=== PATIENT | female | born 1980 | race African-American/Black ===

== ENCOUNTER 2018-03-14 15:25 | Emergency (ER) | payer MEDICAID, OTHER ==
[2018-03-14 15:31] VITALS: BP 116/70
--- NOTE | 2018-03-14 15:39 | ER Document Report ---
HPI - HPI Patient complains to provider of: Insect bite that she scratched Onset: Last week Onset/Duration: Gradual Pain Level: 3 Context: 37-year-old female complaining of an insect bite medial superior left buttocks that she scratched many times causing it to be more sore. No fever or chills. Associated Symptoms: None Exacerbated by: Walking Relieved by: Denies Similar symptoms previously: No Recently seen / treated by doctor: No - ROS ROS below otherwise negative: Yes Systems Reviewed and Negative: Yes All other systems reviewed and negative - REPRODUCTIVE Reproductive: DENIES: : Past Medical History - General Information source: Patient - Social History Smoking Status: Current Every Day Smoker Chew tobacco use (# tins/day): No Frequency of alcohol use: None Drug Abuse: None Lives with: Family Family History: Reviewed & Not Pertinent Patient has suicidal ideation: No Patient has homicidal ideation: No - Medical History Medical History: Negative Renal/ Medical History: Denies: Hx Peritoneal Dialysis Surgical Hx: Negative - Immunizations Hx Diphtheria, Pertussis, Tetanus Vaccination: Yes Vertical Provider Document - CONSTITUTIONAL Agree With Documented VS: Yes Exam Limitations: No Limitations General Appearance: No Apparent Distress - NEURO Level of Consciousness: Alert - DERM Notes: Excoriated skin superior medial left buttocks which is inflamed but no induration or abscess. It looks like skin that she abraded due to scratching. Course - Vital Signs Vital signs: Temp Pulse Resp BP Pulse Ox 98.0 F 81 20 116/70 100 03/14/18 15:31 03/14/18 15:31 03/14/18 15:31 03/14/18 15:31 03/14/18 15:31 Discharge - Discharge Clinical Impression: Abrasion of left buttock Qualifiers: Encounter type: initial encounter Qualified Code(s): S30.810A - Abrasion of lower back and pelvis, initial encounter Condition: Good Disposition: HOME, SELF-CARE Instructions: Abrasions ([facility]), Antibiotic Ointment Protection ([facility]), Cephalexin ([facility]) Additional Instructions: keep skin clean with soap and water bacitracin telfa return to er if not healed in 1 week Prescriptions: Cephalexin Monohydrate [Keflex 500 mg Capsule] 500 mg PO QID #28 capsule
== END 2018-03-14 16:05 | disposition home or self-care (01) ==
LOC: ER 15:25
DX: S30.810A Abrasion of lower back and pelvis, initial encounter (principal); X58.XXXA Exposure to other specified factors, initial encounter; S30.860A Insect bite (nonvenomous) of lower back and pelvis, initial encounter; W57.XXXA Bitten or stung by nonvenomous insect and other nonvenomous arthropods, initial encounter; F17.200 Nicotine dependence, unspecified, uncomplicated
CPT/HCPCS: 99281

== ENCOUNTER 2020-04-30 20:47 | Emergency (ER) | payer SELFPAY ==
[2020-04-30] MEDS ORDERED: NORMAL SALINE 1000 ML 1,000 ML IV ONE (21:10)
[2020-04-30] MEDS ORDERED: METOCLOPRAMIDE HCL 10 MG TABLET PO ONE (21:12)
--- NOTE | 2020-04-30 21:12 | ER Document Report ---
ED Medical Screen (RME) - General Mode of Arrival: Wheelchair Information source: Patient <INDER SWIFT - Last Filed: 04/30/20 21:10> <PONCHO COREAS IV - Last Filed: 05/01/20 01:07> - General Chief Complaint: Weakness Stated Complaint: FATIGUE, EXHAUSTION Time Seen by Provider: 04/30/20 21:08 Notes: 39-year-old female presented to ED for complaint of fatigue dehydration and dizziness. She states she is also nauseated and her stomach feels upset. 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 She states the only medical history she has is a burnt esophagus and high risk for . She did have a port at one time. She states she smokes 1/3 pack a day rarely drinks and does not do any illicit drugs. She states she has not had any surgeries except for the port insertion and removal. She is alert oriented respirations regular nonlabored but states she feels totally drained and dehydrated. I have ordered blood urine and IV fluids and she will be seen by another provider. I have greeted and performed a rapid initial assessment of this patient. A comp rehensive ED assessment and evaluation of the patient, analysis of test results and completion of medical decision making process will be conducted by an additional ED providers. (INDER SWIFT) - Related Data Allergies/Adverse Reactions: No Known Allergies Allergy (Unverified 01/20/12 08:40) Past Medical History - Social History Frequency of alcohol use: Rare Drug Abuse: None Renal/ Medical History: Denies: Hx Peritoneal Dialysis - Immunizations Hx Diphtheria, Pertussis, Tetanus Vaccination: Yes <INDER SWIFT - Last Filed: 04/30/20 21:10> Physical Exam - Vital signs Vitals: Temp Pulse Resp BP Pulse Ox 98.3 F 62 16 111/69 99 04/30/20 20:59 04/30/20 20:59 04/30/20 20:59 04/30/20 20:59 04/30/20 20:59 Course - Laboratory Result Diagrams: 04/30/20 21:17 04/30/20 21:17 <PONCHO COREAS IV - Last Filed: 05/01/20 01:07> - Vital Signs Vital signs: Temp Pulse Resp BP Pulse Ox 98.3 F 62 16 111/69 99 04/30/20 20:59 04/30/20 20:59 04/30/20 20:59 04/30/20 20:59 04/30/20 20:59 - Laboratory Laboratory results interpreted by ky: 04/30/20 04/30/20 04/30/20 21:17 21:17 23:55 Lymph % (Auto) 52.7 H Seg Neutrophils % 36.7 L Chloride 110 H Urine Blood LARGE H Urine Ascorbic Acid 40 H
[2020-04-30 21:51] LABS: ABSOLUTE EOSINOPHILS # (AUTO) 0.2 10^3/uL (0.0-0.6); ABSOLUTE MONOCYTES (AUTO) 0.4 10^3/uL (0.1-1.4); HEMATOCRIT 39.1 % (36.0-47.0); PLATELET COUNT 297 10^3/uL (150-450); TOTAL CELLS COUNTED % (AUTO) 100 %
[2020-04-30 22:10] LABS: ABSOLUTE LYMPHOCYTES (AUTO) 3.1 10^3/uL (0.5-4.7); ABSOLUTE NEUT (AUTO) 2.1 10^3/uL (1.7-8.2); ALBUMIN 3.9 g/dL (3.5-5.0); ALKALINE PHOSPHATASE 70 U/L (38-126); ANION GAP 6 (5-19); ASPARTATE AMINO TRANSFERASE 25 U/L (14-36); BASOPHILS % (AUTO) 0.4 % (0-2); BILIRUBIN,DIRECT 0.2 mg/dL (0.0-0.4); BILIRUBIN,TOTAL 0.3 mg/dL (0.2-1.3); BLOOD UREA NITROGEN 10 mg/dL (7-20); CALCIUM 9.1 mg/dL (8.4-10.2); CARBON DIOXIDE 22 mmol/L (22-30); CHLORIDE 110 mmol/L (98-107); CREATINE KINASE 107 U/L (30-135); EOSINOPHILS % (AUTO) 2.8 % (0-6); GLUCOSE 95 mg/dL (75-110); LYMPHOCYTES % (AUTO) 52.7 % (13-45); MEAN CORPUSCULAR HEMOGLOBIN 30.9 pg (27.0-33.4); MEAN CORPUSCULAR HGB CONC 33.2 g/dL (32.0-36.0); MEAN CORPUSCULAR VOLUME 93 fl (80-97); MONOCYTES % (AUTO) 7.4 % (3-13); POTASSIUM 4.7 mmol/L (3.6-5.0); RED CELL DISTRIBUTION WIDTH 12.3 % (11.5-14.0); SEGMENTED NEUTROPHILS % (AUTO) 36.7 % (42-78); TOTAL PROTEIN 6.8 g/dL (6.3-8.2); WHITE BLOOD COUNT 5.8 10^3/uL (4.0-10.5)
[2020-05-01 00:08] LABS: APPEARANCE,URINE SLIGHTLY-CLOUDY; BILIRUBIN,URINE NEGATIVE (NEGATIVE); COLOR,URINE YELLOW; GLUCOSE, URINE NEGATIVE (NEGATIVE); KETONES,URINE NEGATIVE (NEGATIVE); LEUKOCYTE ESTERASE,URINE NEGATIVE (NEGATIVE); NITRITE,URINE NEGATIVE (NEGATIVE); PROTEIN,URINE NEGATIVE (NEGATIVE); URINE SPECIFIC GRAVITY 1.021; UROBILINOGEN,URINE NEGATIVE mg/dL (<2.0)
[2020-05-01] MEDS ORDERED: NORMAL SALINE 1000 ML 1,000 ML IV ONE (00:20)
[2020-05-01] MEDS ORDERED: ONDANSETRON HCL INJ/PF 4 MG/2 ML SDV IV ONE (00:21)
--- NOTE | 2020-05-01 01:07 | ER Document Report ---
ED General - General Chief Complaint: Weakness Stated Complaint: FATIGUE, EXHAUSTION Time Seen by Provider: 04/30/20 21:08 Primary Care Provider: NIDIA MARISCAL MD [HONORARY] - Follow up as needed Mode of Arrival: Wheelchair - HPI Context: 39-year-old female presents to the emergency department complaint of severe fatigue, generalized weakness, sensation of dehydration and overall exhaustion. 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 Patient states that she has had to work the past 63 days straight and just feels exhausted. Exacerbating factors include having to work without a break and there are no alleviating factors other than the minimal amount of rest she is able to get. Patient denies headache fever chills cough shortness of breath chest pain abdominal pain loss of sense of taste or loss of sense of smell. Patient has not taken any [id number] medications to treat her symptoms. Associated symptoms: Other - See HPI Exacerbated by: Other - See HPI Relieved by: Other - See HPI - Related Data Allergies/Adverse Reactions: No Known Allergies Allergy (Unverified 01/20/12 08:40) Past Medical History - General Information source: Patient - Social History Smoking Status: Current Every Day Smoker Frequency of alcohol use: Rare Drug Abuse: None Family History: Reviewed & Not Pertinent Patient has homicidal ideation: No Renal/ Medical History: Denies: Hx Peritoneal Dialysis - Immunizations Hx Diphtheria, Pertussis, Tetanus Vaccination: Yes Review of Systems - Review of Systems Constitutional: See HPI, Weakness EENT: No symptoms reported Cardiovascular: No symptoms reported Respiratory: No symptoms reported Gastrointestinal: Nausea Genitourinary: No symptoms reported Female Genitourinary: No symptoms reported Musculoskeletal: No symptoms reported Skin: No symptoms reported Hematologic/Lymphatic: No symptoms reported Neurological/Psychological: Weakness -: Yes All other systems reviewed and negative Physical Exam - Vital signs Vitals: Temp Pulse Resp BP Pulse Ox 98.3 F 62 16 111/69 99 04/30/20 20:59 04/30/20 20:59 04/30/20 20:59 04/30/20 20:59 04/30/20 20:59 - Notes Notes: CONSTITUTIONAL [Vital signs reviewed, Patient appears comfortable, Alert and oriented X 3, Normal stature.] HEAD [Atraumatic, Normocephalic.] EYES [Eyes are normal to inspection, No discharge from eyes, Extraocular muscles intact, Sclera are normal, Conjunctiva are normal.] ] NECK [Normal ROM, No jugular venous distention, No meningeal signs, no carotid bruit.] RESPIRATORY CHEST [Chest is nontender, Breath sounds normal, No respiratory distress.] CARDIOVASCULAR [RRR, No murmurs, Normal S1 S2, No rub, No gallop.] ABDOMEN [Abdomen is nontender, No pulsatile masses, No other masses, Bowel sounds normal, No distension, No peritoneal signs, No hernias.] BACK [There is no CVA Tenderness, There is no tenderness to palpation, Normal inspection.] UPPER EXTREMITY [Inspection normal, No cyanosis, No clubbing, No edema, 2+ radial pulses.] LOWER EXTREMITY [Inspection normal, No cyanosis, No clubbing, No edema, No calf tenderness, 2+ femoral pulses.] NEURO [No focal motor deficits, No focal sensory deficits, Speech normal.] SKIN [Skin is warm, Skin is dry, Skin is normal color.] LYMPHATIC [No adenopathy in neck.] PSYCHIATRIC [Normal affect. ] Course - Re-evaluation Re-evalutation: 05/01/20 01:25 Results of ED MSE discussed with patient. All questions were answered prior to discharge. Emergency signs and symptoms, reasons to return to the emergency department discussed with patient. - Vital Signs Vital signs: Temp Pulse Resp BP Pulse Ox 98.3 F 62 16 111/69 99 04/30/20 20:59 04/30/20 20:59 04/30/20 20:59 04/30/20 20:59 04/30/20 20:59 - Laboratory Result Diagrams: 04/30/20 21:17 04/30/20 21:17 Laboratory results interpreted by me: 04/30/20 04/30/20 04/30/20 21:17 21:17 23:55 Lymph % (Auto) 52.7 H Seg Neutrophils % 36.7 L Chloride 110 H Urine Blood LARGE H Urine Ascorbic Acid 40 H Discharge - Discharge Clinical Impression: Physical exhaustion Condition: Stable Disposition: HOME, SELF-CARE Additional Instructions: Return to the Emergency Department without delay if any worse. HOME CARE INSTRUCTIONS & INFORMATION: Thank you for choosing us for your [facility] needs. We hope you're satisfied with the care you received. After you leave, you must properly care for your problem and, at the same time, observe its progress. Any condition can change. Some illnesses can change rapidly over hours or days. If your condition worsens, return to the Emergency Department or see your physician promptly. ABOUT YOUR X-RAYS AND EKG'S: If you had an EKG or X-rays taken, they have been read by the Emergency Physician. The X-rays and EKG's will also be read by a Radiologist or Wash Barrel Leader within 24 hours. If discrepancies are noted, you will be notified by telephone. Please be certain the ED has a correct telephone number & address where you can be reached. Also, realize that some fractures or abnormalities do not show up on initial X-rays. If your symptoms continue, see your physician. ABOUT YOUR LABORATORY TEST: If you had laboratory tests, the results have been reviewed by the Emergency Physician. Some test results (for example cultures) may not be available for several days. You will be contacted if any test result shows you need additional treatment. Please be certain the ED has a correct telephone number and address where you can be reached. ABOUT YOUR MEDICATIONS: You will receive instructions on how to take your medicine on the prescription label you receive. Additional information may be provided by the Pharmacy. If you have questions afterwards, call the ED for clarification or further instructions. Some prescribed medications may cause drowsiness. Do not perform tasks such as driving a car or operating machinery without consulting your Pharmacist. If you feel you need a refill of pain medication, your condition will need re-evaluation. Please do not call for a refill of any medication. ABOUT YOUR SIGNATURE: Signature of this document acknowledges to followin. Understanding that you received emergency treatment and that you may be released before al medical problems are known or treated. Please be certain the ED has a correct phone number & address where you can be reached. 2. Acknowledgement that you will arrange for follow-up care as recommended. 3. Authorization for the Emergency Physician to provide information to your follow-up Physician in order to maximize your care. AT ANY TIME, IF YOUR SYMPTOMS CHANGE SIGNIFICANTLY OR WORSEN OR YOU DEVELOP NEW SYMPTOMS, RETURN TO THE EMERGENCY DEPARTMENT IMMEDIATELY FOR RE-EVALUATION. OUR GOAL IS TO PROVIDE EXCELLENT MEDICAL CARE! WE HOPE THAT WE HAVE MET YOUR EXPECTATIONS DURING YOUR EMERGENCY DEPARTMENT VISIT AND THAT YOU FEEL YOU HAVE RECEIVED EXCELLENT CARE! Forms: Return to Work Referrals: NIDIA MARISCAL MD [HONORARY] - Follow up as needed
[2020-05-01 02:55] VITALS: BP 115/71
== END 2020-05-01 02:53 | disposition home or self-care (01) ==
LOC: ER 20:47
DX: R53.83 Other fatigue (principal); R53.1 Weakness; F17.200 Nicotine dependence, unspecified, uncomplicated
CPT/HCPCS: 99284; 96361; 96374; 36415; 87086; 82550; 83690; 85025; 81025; 87088; 80053; 81001; J2405; J7030